=== PATIENT | male | born 1945 | race Asian ===

== ENCOUNTER 2020-07-22 09:52 | Observation (INO) ==
--- NOTE | 2020-07-22 10:04 | Emergency Department Note ---
Impression & Plan Constipation, Acute urinary retention, History of cerebrovascular accident ED Provider Note NAME: MARIXA QUINTERO AGE: 75 SEX: M : 1945 ARRIVES VIA: Ambulance INFORMANT: Patient, ED PROVIDER(S): Humberto Carrillo MD Chief Complaint: Difficulty with bowel movement HPI: Patient does present with constipation type symptoms which he states been ongoing for about 2 days. Patient states he has not had a bowel movement in a total of 5 days. However he has been symptomatic for the last 2 having difficulty with bowel movements. Patient feels as though there is something there but it is uncomfortable and he cannot get it out and refers to a bowel movement. The patient did have a recent stroke back in May at [facility]. The patient states that he does have some left-sided weakness compared to right-sided strength. The patient denies any headache or neck pain. The patient has had nausea but no vomiting. The patient denies any fevers or chills. The patient states he has not had Covid as he has been in his residence for the last 3 weeks. He is taken care of by his family. The patient has tried some stool softener at home but this has not improved his symptoms. Patient has prior history of abdominal surgery. Patient states that he is here for "cure for bowel movement." ROS: See HPI for pertinent positives and negatives. A total of 10 systems were reviewed and otherwise negative. Past medical history: See below Surgical history: See below Social history: See below Physical Exam: GENERAL: Wearing a mask. NAD, non-toxic. EYE EXAM: Normal conjunctiva. PERRL, no anisocoria and EOM's grossly intact w/o pain. NECK: Supple, no nuchal rigidity, no adenopathy, non-tender. No signs of meningismus. LUNGS: Clear to auscultation. Normal chest wall mechanics. HEART: NSR, no MRG. ABDOMEN: Abdomen soft, non-tender, lower abdominal fullness noted, normo-active bowel sounds, no masses, no rebound or guarding. BACK: No CVA TTP. SKIN: No rashes and no bruising. UPPER EXTREMITIES: Upper extremities are grossly normal. LOWER EXTREMITIES: Grossly normal, no edema. NEURO EXAM: A&O x3, cranial nerves II-XII grossly intact, normal speech, moves all 4 extremities on command w/o issue. Differential diagnoses: Constipation, stool impaction, bowel obstruction, abdominal mass, volvulus, perforation among others were considered. Course: Patient was seen and evaluated the bedside. Full history physical exam was performed. EKG: None Imaging Studies: See below Cardiac monitoring: An order was placed for continuous cardiac monitoring. The monitor shows a rate of 94 with sinus rhythm. MDM: Patient did present with concern for constipation type symptoms. I did try to obtain records from [facility] has the patient has not visited this hospital before. I did speak with the marketing secretary to try and obtain his records. Did receive past medical records from [facility] which showed that the patient does have a known history of hypertension has been a transfer through the [facility] system due to concern for bilateral cerebellar stroke. Patient reportedly had some dizziness unsteadiness and generalized weakness at that time. Patient did have some x-rays at the time of his admission which showed a fracture distal left clavicle. CT of his head showed acute subacute infarcts of the bilateral cerebellar hemispheres. No hydrocephalus at that time. She had negative CT cervical spine. Patient also did have a CT chest abdomen pelvis with contrast at that time which showed some atherosclerotic changes of the aorta. Somewhat enlarged prostate. Patient had numerous falls prior to the time of his admission. Patient had had symptoms proximally 5 to 7 days prior to being seen at the hospital. Patient's stroke scale only showed a 2 4 limb ataxia. Patient's A1c at the time of his admission was 11.7. The patient was discharged on Lantus and Metformin. The patient is on Flomax for urinary retention. Lisinopril for hypertension. Given the noted urinary retention the fact the patient has not been taking his medications I did have a bladder scan performed which showed that the patient was retaining urine. Jurado catheter was placed which output was approximately 2 L. [id number] BMP was ordered. I did speak with the machine adjuster leader case trim to discuss with an office of aging or additional help with be of benefit of the patient's given that he is now greater than a month out from his discharge and does not flower buncher or picker his medications. ED pharmacist did call and noted that the medications were there but have not been picked up. The patient's blood work fairly unremarkable white count of 12 with a normal hemoglobin. The patient's kidney function is essentially at baseline. I did convey this to the machine adjuster leader case trim. medical reimbursement manager still attempted to reach family but was unable to do so. Given that the patient has not been taking medications and there is concern about his wellbeing at home I did speak with the on-call hospitalist and the patient was admitted to the medicine service by Dr. Perea. 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: No Beliefs That Will Affect Care: None Current Living Situation: Spouse and Family Feels Safe at Home: Yes Assistive Devices: Glasses Allergies Allergies Allergy/AdvReac Type Severity Reaction Status Date / Time No Known Allergies Allergy Unverified 07/22/20 11:20 Home Meds Home Medications Medication Instructions Recorded Confirmed No Known Home Medications 07/22/20 07/22/20 Previous Rx's Medication Instructions Recorded aspirin 81 mg PO DAILY 30 Days #30 tab 07/23/20 atorvastatin 40 mg PO HS 30 Days #30 tab 07/23/20 docusate sodium 100 mg PO BID PRN 30 Days #60 cap 07/23/20 insulin glargine [Lantus Solostar 5 unit SC BID 30 Days #3 ml 07/23/20 U-100 Insulin] lisinopril 20 mg PO QAM 30 Days #30 tab 07/23/20 polyethylene glycol 3350 [Miralax] 17 g PO DAILY PRN 30 Days #30 ea 07/23/20 tamsulosin 0.4 mg PO HS 30 Days #30 cap 07/23/20 Results & Data (ED) Vital Signs Vital Signs - 24 hr 07/22/20 10:00 07/22/20 10:15 07/22/20 10:30 Temperature 36.8 C Temperature Source Oral Pulse Rate 94 H Pulse Rate [Finger] 92 H Pulse Rhythm [Finger] Pulse Strength [Finger] Respiratory Rate 16 18 Respiratory Effort / Characteristics Non-Labored Spontaneous Non-Labored Spontaneous Respiratory Depth Normal Normal Respiratory Pattern Regular Regular Blood Pressure 160/86 H Blood Pressure [Right Arm] 151/87 H Blood Pressure Mean 110 Blood Pressure Mean [Right Arm] 108 Blood Pressure Position [Right Arm] Pulse Oximetry 97 96 99 Oxygen Delivery Method Room Air Room Air Room Air Sepsis Recent Fever Within 48 Hours No Sepsis New/Unexplained Change in Mental Status No Sepsis Action Taken by Nursing No Action Required 07/22/20 12:30 07/22/20 15:30 07/22/20 17:09 Temperature Temperature Source Pulse Rate Pulse Rate [Finger] 101 H 99 H 100 H Pulse Rhythm [Finger] Regular Pulse Strength [Finger] Normal Respiratory Rate 16 18 18 Respiratory Effort / Characteristics Non-Labored Spontaneous Respiratory Depth Normal Respiratory Pattern Regular Blood Pressure Blood Pressure [Right Arm] 114/67 152/83 H 158/93 H Blood Pressure Mean Blood Pressure Mean [Right Arm] 82 106 114 Blood Pressure Position [Right Arm] Lying Pulse Oximetry 100 100 95 Oxygen Delivery Method Room Air Room Air Sepsis Recent Fever Within 48 Hours Sepsis New/Unexplained Change in Mental Status Sepsis Action Taken by [facility] Medications Current Medication List: was personally reviewed by me Laboratory Data Attestation: I reviewed the patient's lab results. Result diagrams: 07/23/20 05:29 07/23/20 05:29 Lab Results 07/22/20 07/22/20 07/22/20 Range/Units 13:30 15:26 15:26 WBC 12.13 H (4.8-10.8) K/uL RBC 4.24 L (4.7-6.1) M/uL Hgb 13.1 L (14.0-18.0) g/dL POC Hgb (14.0-18.0) g/dl Hct 37.8 L (42-52) % POC Hct (42-52) % MCV 89.2 (80-100) fL MCH 30.9 (25-34) pg MCHC 34.7 (32-36) g/dL RDW Std Deviation 41.8 (36.4-46.3) fL RDW Coeff of Fabian 12.9 (11.5-14.5) % Plt Count 204 (130-400) K/uL MPV 10.3 (7.4-10.4) fL Immature Gran % (Auto) 0.3 % Neut % (Auto) 82.9 % Lymph % (Auto) 7.9 % [place] % (Auto) 8.6 % Eos % (Auto) 0.2 % Baso % (Auto) 0.1 % Neut # (Auto) 10.06 H (1.4-6.5) K/uL Lymph # (Auto) 0.96 L (1.2-3.4) K/uL [place] # (Auto) 1.04 H (0.11-0.59) K/uL Eos # (Auto) 0.02 (0-0.5) K/uL Baso # (Auto) 0.01 (0-0.2) K/uL Immature Gran # (Auto) 0.04 H (0.00-0.02) K/uL POC Sodium (135-144) mmol/L Sodium 135 L (136-145) mmol/L POC Potassium (3.3-5.0) mmol/L Potassium 4.1 (3.5-5.1) mmol/L POC Chloride (101-112) mmol/L Chloride 99 (98-107) mmol/L Carbon Dioxide 30 (21-32) mmol/L POC Total CO2 (24-31) mmol/L Anion Gap 7.0 (3-11) POC Anion Gap (16-25) mmol/L POC BUN (7-18) mg/dl BUN 38 H (7-18) mg/dl Creatinine 1.40 (0.6-1.4) mg/dl POC Creatinine (0.6-1.3) mg/dl Est Cr Clr Drug Dosing 31.6 ml/min Est GFR ( Amer) 56.2 Est GFR (Non-Af Amer) 48.5 BUN/Creatinine Ratio 27.4 H (10-20) Glucose 182 H (70-99) mg/dl POC Glucose (other) (70-99) mg/dl Calcium 9.2 (8.5-10.1) mg/dl POC Ioniz Calcium [place] (1.12-1.32) mmol/l Phosphorus (2.5-4.9) mg/dl Magnesium (1.8-2.4) mg/dl Urine Color Dark Yellow Urine Appearance Clear (Clear) Urine pH 5.0 (4.5-7.5) Ur Specific [place] 1.024 (1.000-1.030) Urine Protein 1+ H (Negative) Urine Glucose (UA) 1+ H (Negative) Urine Ketones Trace H (Negative) Urine Blood Trace H (Negative) Urine Nitrite Negative (Negative) Urine Bilirubin Negative (Negative) Urine Urobilinogen Negative (Negative) Ur Leukocyte Esterase Negative (Negative) Urine WBC (Auto) 1-5 (0-5) /hpf Urine RBC (Auto) 5-10 H (0-4) /hpf U Hyaline Cast (Auto) 1-5 (0-5) /lpf U Epithel Cells (Auto) 10-20 H (0-5) /lpf Urine Bacteria (Auto) Negative (Negative) 07/22/20 07/22/20 Range/Units 15:26 15:30 WBC (4.8-10.8) K/uL RBC (4.7-6.1) M/uL Hgb (14.0-18.0) g/dL POC Hgb 12.9 L (14.0-18.0) g/dl Hct (42-52) % POC Hct 38 L (42-52) % MCV (80-100) fL MCH (25-34) pg MCHC (32-36) g/dL RDW Std Deviation (36.4-46.3) fL RDW Coeff of Fabian (11.5-14.5) % Plt Count (130-400) K/uL MPV (7.4-10.4) fL Immature Gran % (Auto) % Neut % (Auto) % Lymph % (Auto) % [place] % (Auto) % Eos % (Auto) % Baso % (Auto) % Neut # (Auto) (1.4-6.5) K/uL Lymph # (Auto) (1.2-3.4) K/uL [place] # (Auto) (0.11-0.59) K/uL Eos # (Auto) (0-0.5) K/uL Baso # (Auto) (0-0.2) K/uL Immature Gran # (Auto) (0.00-0.02) K/uL POC Sodium 135 (135-144) mmol/L Sodium (136-145) mmol/L POC Potassium 4.1 (3.3-5.0) mmol/L Potassium (3.5-5.1) mmol/L POC Chloride 95 L (101-112) mmol/L Chloride (98-107) mmol/L Carbon Dioxide (21-32) mmol/L POC Total CO2 32 H (24-31) mmol/L Anion Gap (3-11) POC Anion Gap 13.0 L (16-25) mmol/L POC BUN 37 H (7-18) mg/dl BUN (7-18) mg/dl Creatinine (0.6-1.4) mg/dl POC Creatinine 1.5 H (0.6-1.3) mg/dl Est Cr Clr Drug Dosing ml/min Est GFR ( Amer) Est GFR (Non-Af Amer) BUN/Creatinine Ratio (10-20) Glucose (70-99) mg/dl POC Glucose (other) 184 H (70-99) mg/dl Calcium (8.5-10.1) mg/dl POC Ioniz Calcium [place] 1.07 L (1.12-1.32) mmol/l Phosphorus 3.6 (2.5-4.9) mg/dl Magnesium 3.1 H (1.8-2.4) mg/dl Urine Color Urine Appearance (Clear) Urine pH (4.5-7.5) Ur Specific [place] (1.000-1.030) Urine Protein (Negative) Urine Glucose (UA) (Negative) Urine Ketones (Negative) Urine Blood (Negative) Urine Nitrite (Negative) Urine Bilirubin (Negative) Urine Urobilinogen (Negative) Ur Leukocyte Esterase (Negative) Urine WBC (Auto) (0-5) /hpf Urine RBC (Auto) (0-4) /hpf U Hyaline Cast (Auto) (0-5) /lpf U Epithel Cells (Auto) (0-5) /lpf Urine Bacteria (Auto) (Negative) Administered Medications Aspirin (Aspirin 81 Mg Ectab) 81 mg PO DAILY [facility] Stop: 08/21/20 21:25 Last Admin: 07/23/20 08:59 Dose: 81 mg Documented by: [id number] Admin: 07/22/20 22:27 Dose: 81 mg Documented by: [id number] Atorvastatin Calcium (Atorvastatin 40 Mg Tab) [facility]: 08/22/20 08:59 Last Admin: 07/23/20 08:59 Dose: 40 mg Documented by: [id number] Sodium Chloride (Nss 1000ml) 1,000 mls @ 100 mls/hr IV .Q10H NA Stop: 07/23/20 17:25 Last Admin: 07/23/20 06:17 Dose: 100 mls/hr Documented by: [id number] Infusion: 07/23/20 06:17 Dose: 100 mls/hr Documented by: [id number] Admin: 07/22/20 21:32 Dose: 100 mls/hr Documented by: [id number] Insulin Aspart (Insulin Aspart 100 Units/Ml 3 Ml Pen) 0 units SC ACHS NA Stop: 08/21/20 21:25 Last Admin: 07/23/20 08:56 Dose: 3 units Documented by: [id number] Cosigned by: [id number] Admin: 07/22/20 22:25 Dose: 1 units Documented by: [id number] Cosigned by: [id number] Insulin Glargine (Insulin Glargine Solostar 100 Units/Ml 3 Ml Pen) 5 units SC BID NA Stop: 08/21/20 21:25 Last Admin: 07/23/20 08:59 Dose: 5 units Documented by: [id number] Cosigned by: [id number] Admin: 07/22/20 22:26 Dose: 5 units Documented by: [id number] Cosigned by: [id number] Lisinopril (Lisinopril 20 Mg Tab) 20 mg PO QAM [facility] Stop: 08/22/20 08:59 Last Admin: 07/23/20 08:59 Dose: 20 mg Documented by: [id number] Tamsulosin HCl (Tamsulosin Hcl 0.4 Mg Cap) 0.4 mg PO HS [facility] Stop: 08/21/20 21:25 Last Admin: 07/22/20 22:26 Dose: 0.4 mg Documented by: [id number] Discontinued Medications Sodium Chloride (Nss 1000ml) 500 mls @ 999 mls/hr IV .Q31M ONE Stop: 07/22/20 16:47 Last Infusion: 07/22/20 17:32 Dose: 0 mls/hr Documented by: [id number] Admin: 07/22/20 16:44 Dose: 999 mls/hr Documented by: [id number] Magnesium Citrate (Magnesium Citrate 296 Ml/Btl) 296 ml PO NOW STA Stop: 07/22/20 10:57 Last Admin: 07/22/20 12:12 Dose: 296 ml Documented by: [id number] Senna/Docusate Sodium (Docusate Sodium/Senna 50/8.6mg Tab) 1 tab PO NOW STA Stop: 07/22/20 10:57 Last Admin: 07/22/20 12:12 Dose: 1 tab Documented by: [id number] Sodium Biphosphate/Sodium Phosphate (Sod Phosphate/Sod Biphosphate Enema 132 Ml Btl) Confirm Administered Dose 132 ml [place] .STK-MED ONE Stop: 07/22/20 11:57 Last Admin: 07/22/20 12:12 Dose: Not Given Documented by: [id number] Sodium Biphosphate/Sodium Phosphate (Sod Phosphate/Sod Biphosphate Enema 132 Ml Btl) 132 ml [place] NOW STA Stop: 07/22/20 12:06 Last Admin: 07/22/20 13:37 Dose: 132 ml Documented by: [id number] Imaging Data Radiologist's Impression: Chest/Abdomen X-ray 07/22/20 10:15 XR abdomen 2V w PA chest HISTORY: 75 years-old Male constipation chest and abdominal pain with consti pation COMPARISON: None TECHNIQUE: PA view of the chest with supine and left lateral decubitus films of the abdomen FINDINGS: Cardiomediastinal and hilar silhouettes are within normal limits. Calcified plaque of the thoracic aorta. 11 mm nodular density of the right lung base. No pneumothorax, pleural effusion, airspace consolidation or overt pulmonary edema. Bones of the chest appear grossly intact. Right shoulder rotator cuff calcific tendinosis. No pneumatosis or pneumoperitoneum. Bowel gas pattern is nonobstructive. Mild fecal retention. No urolith identified. Lumbar levoscoliosis with multilevel degenerative changes of the spine. IMPRESSION: 1. No acute processes of the chest. 2. 11 mm nodular density of the right lung base may represent a nipple shadow. 3. Nonobstructive bowel gas pattern. 4. Mild fecal retention. ACT 112: Negative or not required by law. The above report was generated using voice recognition software. It may contain grammatical, syntax or spelling errors. Electronically signed by: Kalin Connelly M.D. 07/22/2020 10:59 AM Discharge Plan Visit Data Chief Complaint: Constipation ED Provider: Humberto Carrillo Discharge Problem: Constipation, Acute urinary retention, History of cerebrovascular accident Patient Disposition: Admitted As Inpatient Discharge Instructions Interventions: ED Discharge Assessment Last Done: 07/22/20 20:47 Discharge Problem: Constipation Qualifiers: Constipation type: unspecified constipation type Qualified Code(s): K59.00 - Constipation, unspecified
[2020-07-22] MEDS ORDERED: MAGNESIUM CITRATE 296 ML/BTL PO STA (10:56)
[2020-07-22] MEDS ORDERED: DOCUSATE SODIUM/SENNA 50/8.6MG TAB PO STA (10:56)
--- NOTE | 2020-07-22 11:00 | XRay Report ---
XR abdomen 2V w PA chest HISTORY: 75 years-old Male constipation chest and abdominal pain with constipation COMPARISON: None TECHNIQUE: PA view of the chest with supine and left lateral decubitus films of the abdomen FINDINGS: Cardiomediastinal and hilar silhouettes are within normal limits. Calcified plaque of the thoracic ao rta. 11 mm nodular density of the right lung base. No pneumothorax, pleural effusion, airspace consol idation or overt pulmonary edema. Bones of the chest appear grossly intact. Right shoulder rotator cu ff calcific tendinosis. No pneumatosis or pneumoperitoneum. Bowel gas pattern is nonobstructive. Mild fecal retention. No uro lith identified. Lumbar levoscoliosis with multilevel degenerative changes of the spine. IMPRESSION: 1. No acute processes of the chest. 2. 11 mm nodular density of the right lung base may represent a nipple shadow. 3. Nonobstructive bowel gas pattern. 4. Mild fecal retention. ACT 112: Negative or not required by law. The above report was generated using voice recognition software. It may contain grammatical, syntax o r spelling errors. Electronically signed by: Kalin Connelly M.D. 07/22/2020 10:59 AM
[2020-07-22] MEDS ORDERED: SOD PHOSPHATE/SOD BIPHOSPHATE ENEMA 132 ML BTL PR ONE (11:56)
[2020-07-22] MEDS ORDERED: SOD PHOSPHATE/SOD BIPHOSPHATE ENEMA 132 ML BTL PR STA (12:05)
[2020-07-22 13:43] LABS: Appearance Urine Clear (Clear); Bacteria Urine Automated Negative (Negative); Bilirubin Urine Negative (Negative); Blood Urine Trace (Negative); Color Urine Dark Yellow; Glucose Urine UA 1+ (Negative); Ketones Urine Trace (Negative); Leukocyte Esterase Urine Negative (Negative); Nitrite Urine Negative (Negative); Protein Urine 1+ (Negative); Specific Gravity Urine 1.024 (1.000-1.030); Urobilinogen Urine Negative (Negative)
[2020-07-22 15:35] LABS: Basophils # (auto) 0.01 K/uL (0-0.2); Basophils % (auto) 0.1 %; Eosinophils # (auto) 0.02 K/uL (0-0.5); Eosinophils % (auto) 0.2 %; Hematocrit (blood only) 37.8 % (42-52); Hemoglobin 13.1 g/dL (14.0-18.0); Immature Granulocytes # (auto) 0.04 K/uL (0.00-0.02); Immature Granulocytes % (auto) 0.3 %; Lymphocytes # (auto) 0.96 K/uL (1.2-3.4); Lymphocytes % (auto) 7.9 %; Mean Corpuscular Hemoglobin 30.9 pg (25-34); Mean Corpuscular Hgb Conc 34.7 g/dL (32-36); Mean Corpuscular Volume 89.2 fL (80-100); Mean Platelet Volume 10.3 fL (7.4-10.4); Monocytes # (auto) 1.04 K/uL (0.11-0.59); Monocytes % (auto) 8.6 %; Neutrophils # (auto) 10.06 K/uL (1.4-6.5); Neutrophils % (auto) 82.9 %; Platelet Count 204 K/uL (130-400); RDW Coefficient of Variation 12.9 % (11.5-14.5); RDW Standard Deviation 41.8 fL (36.4-46.3); Red Blood Count 4.24 M/uL (4.7-6.1); White Blood Count 12.13 K/uL (4.8-10.8)
[2020-07-22 15:49] LABS: BUN Creatinine Ratio 27.4 (10-20); Calcium 9.2 mg/dl (8.5-10.1); Creatinine Clr Calc Pharmacy 31.6 ml/min; Est GFR (African American) 56.2; Est GFR (Non-African American) 48.5; Potassium 4.1 mmol/L (3.5-5.1)
[2020-07-22] MEDS ORDERED: SODIUM CHLORIDE 0.9% 1000ML 500 ML IV ONE (16:17)
[2020-07-22 16:22] LABS: iSTAT Creatinine 1.5 mg/dl (0.6-1.3); iSTAT Hemoglobin 12.9 g/dl (14.0-18.0); iSTAT Ionized Calcium 1.07 mmol/l (1.12-1.32); iSTAT Potassium 4.1 mmol/L (3.3-5.0)
--- NOTE | 2020-07-22 18:49 | History & Physical Report ---
Date of Service July 22, 2020 Assessment & Plan (1) Constipation: Largely resolved after receiving several agents in the ER. -Monitor output -Colace, Miralax as needed -Patient should continue bowel regimen on discharge Present on Admission?: Yes (2) Acute urinary retention: Jurado in place with 2ooo mL output. Cr is within normal range. Patient endorses decreased urinary output. He has prostatic enlargement noted on imaging. Was discharged on Flomax from [facility], however, has not been taking this -Continue Jurado for now with routine care q shift -Flomax 0.4mg daily -Monitor UOP and renal function Present on Admission?: Yes (3) Hypertension: Blood pressure presently elevated at 158/93 -Will resume Lisinopril 20mg po daily -Continue to monitor Present on Admission?: Yes (4) Diabetes type 2, uncontrolled: Blood sugar presently 182. Patient was recently discharged on Lantus 12u daily from [facility]. However, he has not been taking this medication -Check HgbA1C -Lantus 5u BID -ISS -Patient may benefit from diabetes education and nutrition counseling in the future Present on Admission?: Yes (5) CVA (cerebral vascular accident): Patient with recent cerebellar stroke for which he was admitted to [facility] -Continue ASA 81mg po daily -Continue Lipitor 40mg po daily -Management of blood pressure and diabetes Patient seems to be somewhat hesitant to take his home medications, stating that "he doesn't need them" anymore. I offered some brief counseling re: management of chronic disease such as DM and HTN as well as importance of ASA and Statin for secondary prevention for CVA. Patient currently does not follow with a PCP. He should establish care and commit to routine followup. F/E/N - NSS at 100mL/hr x 2 liters, CC/AHA diet as tolerated Ppx - SCDs Code - Full Dispo - Observation to medical History of Present Illness Chief Complaint: Constipation Primary Care Provider: NO PCP Silas Box is a 75yo [place] male with history of HTN, DM and urinary retention. Patient does not routinely seek medical care. He had a recent cerebellar CVA for which he was hospitalized at [facility] from 05/29 - 06/08. Patient returned home and is currently being cared for by family. He has not taken any medications since returning home. He reports his blood pressure is typically 140-170 and his blood sugars are often >300. He presents today with complaint of constipation. Last BM reported to be 5 days ago. He has had some abdominal discomfort x 2 days. He also reports having infrequent urination, passing only small amounts. No additional complaints at this time. Patient afebrile, HD stable in the ER. He was given several agents to induce bowel movement which was successful. Given history of urinary retention patient had a bladder scan then Jurado placement with 2000 mL passed. ER Course: Magnesium citrate Senna/Docusate Sodium Bisphosphate enema NSS x 500mL REVIEW OF RECORDS FROM [facility] HOSPITALIZATION: 05/29/20 - 06/08/20 Admitted with bilateral cerebellar strokes with cerebral edema. Found with [id number] left clavicular fracture as well and urinary retention Stroke thought to be thrombotic in nature given heavy atherosclerotic burden MRI Brain - cerebellar stroke CTA - extensive atherosclerotic disease of carotid bifurcation and 20-49% stenosis of proximal left ICA Echo - EF of 60-69% with normal wall motion Cr=1.44 Patient was discharged on the following medications ASA 81mg Lipitor 40mg Lisinopril 20 mg Lantus 12u daily Metformin 500mg BID Flomax Docusate/Senna, Miralax and Bisacodyl Allergies Allergy/AdvReac Type Severity Reaction Status Date / Time No Known Allergies Allergy Unverified 07/22/20 11:20 Home Medications Medication Instructions Recorded Confirmed Type No Known Home Medications 07/22/20 07/22/20 History Past Med/Surg History Medical History (Updated 07/22/20 @ 19:04 by Mariaelena Perea DO) CVA (cerebral vascular accident) Diabetes type 2, uncontrolled Hypertension Surgical History No pertinent past surgical history Family History (Updated 07/22/20 @ 18:57 by Mariaelena Perea DO) Other No significant family history Social History (Updated 07/22/20 @ 18:57 by Mariaelena Perea DO) Smoking Status: Never smoker Hx Alcohol Use: No Hx Substance Use: No Review of Systems Review of Systems: All systems reviewed & are unremarkable except as noted in HPI & below Physical Exam Physical Exam: General: frail appearing patient resting comfortably, NAD, non-toxic in appearance, AA&O x 4, hard of hearing Skin: warm, dry, intact, no rashes or lesions HEENT: NC/AT, PERRL, EOMI, anicteric sclera, conjunctiva without injection, external ear normal to inspection and nontender, nares patent, moist mucus membranes, dentition intact, no oropharyngeal lesions, neck supple, trachea midline, no LAD, no thyromegaly, no JVD Heart: +S1/S2, regular, no m/r/g Lungs: equal air entry bilaterally, no rales/rhonchi/wheezes Abd: +BS, soft, ND, mildly tender with deep palpation without rebound/guarding/peritoneal signs, no masses/organomegaly/ascites Ext: warm, 2+ pulses in UE/LE bilaterally, no clubbing/cyanosis or edema Neuro: hard of hearing, patient requires assistance with positioning Results & Data Results & Data ([facility]) Vital Signs (Past 12 Hours) Vital Signs Temp Pulse Pulse Resp BP BP Pulse Ox 07/22/20 17:09 100 H 18 158/93 H 95 07/22/20 15:30 99 H 18 152/83 H 100 07/22/20 12:30 101 H 16 114/67 100 07/22/20 10:30 92 H 18 151/87 H 99 07/22/20 10:15 96 07/22/20 10:00 36.8 C 94 H 16 160/86 H 97 Laboratory Results Lab Results 07/22/20 07/22/20 07/22/20 Range/Units 13:30 15:26 15:26 WBC 12.13 H (4.8-10.8) K/uL RBC 4.24 L (4.7-6.1) M/uL Hgb 13.1 L (14.0-18.0) g/dL POC Hgb (14.0-18.0) g/dl Hct 37.8 L (42-52) % POC Hct (42-52) % MCV 89.2 (80-100) fL MCH 30.9 (25-34) pg MCHC 34.7 (32-36) g/dL RDW Std Deviation 41.8 (36.4-46.3) fL RDW Coeff of Fabian 12.9 (11.5-14.5) % Plt Count 204 (130-400) K/uL MPV 10.3 (7.4-10.4) fL Immature Gran % (Auto) 0.3 % Neut % (Auto) 82.9 % Lymph % (Auto) 7.9 % [place] % (Auto) 8.6 % Eos % (Auto) 0.2 % Baso % (Auto) 0.1 % Neut # (Auto) 10.06 H (1.4-6.5) K/uL Lymph # (Auto) 0.96 L (1.2-3.4) K/uL [place] # (Auto) 1.04 H (0.11-0.59) K/uL Eos # (Auto) 0.02 (0-0.5) K/uL Baso # (Auto) 0.01 (0-0.2) K/uL Immature Gran # (Auto) 0.04 H (0.00-0.02) K/uL POC Sodium (135-144) mmol/L Sodium 135 L (136-145) mmol/L POC Potassium (3.3-5.0) mmol/L Potassium 4.1 (3.5-5.1) mmol/L POC Chloride (101-112) mmol/L Chloride 99 (98-107) mmol/L Carbon Dioxide 30 (21-32) mmol/L POC Total CO2 (24-31) mmol/L Anion Gap 7.0 (3-11) POC Anion Gap (16-25) mmol/L POC BUN (7-18) mg/dl BUN 38 H (7-18) mg/dl Creatinine 1.40 (0.6-1.4) mg/dl POC Creatinine (0.6-1.3) mg/dl Est Cr Clr Drug Dosing 31.6 ml/min Est GFR ( Amer) 56.2 Est GFR (Non-Af Amer) 48.5 BUN/Creatinine Ratio 27.4 H (10-20) Glucose 182 H (70-99) mg/dl POC Glucose (other) (70-99) mg/dl Calcium 9.2 (8.5-10.1) mg/dl POC Ioniz Calcium Cuauhtemoc (1.12-1.32) mmol/l Urine Color Dark Yellow Urine Appearance Clear (Clear) Urine pH 5.0 (4.5-7.5) Ur Specific [place] 1.024 (1.000-1.030) Urine Protein 1+ H (Negative) Urine Glucose (UA) 1+ H (Negative) Urine Ketones Trace H (Negative) Urine Blood Trace H (Negative) Urine Nitrite Negative (Negative) Urine Bilirubin Negative (Negative) Urine Urobilinogen Negative (Negative) Ur Leukocyte Esterase Negative (Negative) Urine WBC (Auto) 1-5 (0-5) /hpf Urine RBC (Auto) 5-10 H (0-4) /hpf U Hyaline Cast (Auto) 1-5 (0-5) /lpf U Epithel Cells (Auto) 10-20 H (0-5) /lpf Urine Bacteria (Auto) Negative (Negative) 07/22/20 Range/Units 15:30 WBC (4.8-10.8) K/uL RBC (4.7-6.1) M/uL Hgb (14.0-18.0) g/dL POC Hgb 12.9 L (14.0-18.0) g/dl Hct (42-52) % POC Hct 38 L (42-52) % MCV (80-100) fL MCH (25-34) pg MCHC (32-36) g/dL RDW Std Deviation (36.4-46.3) fL RDW Coeff of Fabian (11.5-14.5) % Plt Count (130-400) K/uL MPV (7.4-10.4) fL Immature Gran % (Auto) % Neut % (Auto) % Lymph % (Auto) % St. [place]air % (Auto) % Eos % (Auto) % Baso % (Auto) % Neut # (Auto) (1.4-6.5) K/uL Lymph # (Auto) (1.2-3.4) K/uL St[place] # (Auto) (0.11-0.59) K/uL Eos # (Auto) (0-0.5) K/uL Baso # (Auto) (0-0.2) K/uL Immature Gran # (Auto) (0.00-0.02) K/uL POC Sodium 135 (135-144) mmol/L Sodium (136-145) mmol/L POC Potassium 4.1 (3.3-5.0) mmol/L Potassium (3.5-5.1) mmol/L POC Chloride 95 L (101-112) mmol/L Chloride (98-107) mmol/L Carbon Dioxide (21-32) mmol/L POC Total CO2 32 H (24-31) mmol/L Anion Gap (3-11) POC Anion Gap 13.0 L (16-25) mmol/L POC BUN 37 H (7-18) mg/dl BUN (7-18) mg/dl Creatinine (0.6-1.4) mg/dl POC Creatinine 1.5 H (0.6-1.3) mg/dl Est Cr Clr Drug Dosing ml/min Est GFR ( Amer) Est GFR (Non-Af Amer) BUN/Creatinine Ratio (10-20) Glucose (70-99) mg/dl POC Glucose (other) 184 H (70-99) mg/dl Calcium (8.5-10.1) mg/dl POC Ioniz Calcium Cuauhtemoc 1.07 L (1.12-1.32) mmol/l Urine Color Urine Appearance (Clear) Urine pH (4.5-7.5) Ur Specific [place] (1.000-1.030) Urine Protein (Negative) Urine Glucose (UA) (Negative) Urine Ketones (Negative) Urine Blood (Negative) Urine Nitrite (Negative) Urine Bilirubin (Negative) Urine Urobilinogen (Negative) Ur Leukocyte Esterase (Negative) Urine WBC (Auto) (0-5) /hpf Urine RBC (Auto) (0-4) /hpf U Hyaline Cast (Auto) (0-5) /lpf U Epithel Cells (Auto) (0-5) /lpf Urine Bacteria (Auto) (Negative) Diagnostic Findings XR abdomen 2V w PA chest HISTORY: 75 years-old Male constipation chest and abdominal pain with constipation COMPARISON: None TECHNIQUE: PA view of the chest with supine and left lateral decubitus films of the abdomen FINDINGS: Cardiomediastinal and hilar silhouettes are within normal limits. Calcified plaque of the thoracic aorta. 11 mm nodular density of the right lung base. No pneumothorax, pleural effusion, airspace consolidation or overt pulmonary edema. Bones of the chest appear grossly intact. Right shoulder rotator cuff calcific tendinosis. No pneumatosis or pneumoperitoneum. Bowel gas pattern is nonobstructive. Mild fecal retention. No urolith identified. Lumbar levoscoliosis with multilevel degenerative changes of the spine. IMPRESSION: 1. No acute processes of the chest. 2. 11 mm nodular density of the right lung base may represent a nipple shadow. 3. Nonobstructive bowel gas pattern. 4. Mild fecal retention. ACT 112: Negative or not required by law. The above report was generated using voice recognition software. It may contain grammatical, syntax or spelling errors. Electronically signed by: Kalin Connelly M.D. 07/22/2020 10:59 AM Dictated: 07/22/20 1055Transcribed: 07/22/20 1055 PG Care Time/CCT Total # of Minutes Spent Total Time Spent with Patient: Total time spent is greater than 50% in coordination of care (as documented) at patient's floor/unit and/or counseling patient: Coding Level of Care Code 95283 OBS Care - Level 3 Diagnoses Constipation K59.00 Constipation type: unspecified constipation type Acute urinary retention R33.8 Hypertension I10 Hypertension type: essential hypertension Diabetes type 2, uncontrolled E11.65 Glycemic state: with hyperglycemia CVA (cerebral vascular accident) I63.9 CVA mechanism: unspecified (1) Hypertension Hypertension type: essential hypertension Qualified Code(s): I10 - Essential (primary) hypertension (2) Diabetes type 2, uncontrolled Glycemic state: with hyperglycemia Qualified Code(s): E11.65 - Type 2 diabetes mellitus with hyperglycemia (3) Constipation Constipation type: unspecified constipation type Qualified Code(s): K59.00 - Constipation, unspecified (4) CVA (cerebral vascular accident) CVA mechanism: unspecified Qualified Code(s): I63.9 - Cerebral infarction, unspecified
[2020-07-22 19:57] LABS: Influenza A virus by PCR Negative (Neg); Influenza B virus by PCR Negative (Neg); RSV by PCR Negative (Neg); SARS CoV2 RNA(COVID-19) InHosp NEGATIVE (Negative)
[2020-07-22] MEDS ORDERED: GLUCAGON FOR INJ 1 MG VIAL SQ PRN (21:26)
[2020-07-22] MEDS ORDERED: DOCUSATE SODIUM 100 MG CAP PO PRN (21:26)
[2020-07-22] MEDS ORDERED: DEXTROSE 50% 50 ML SYRINGE IV PRN (21:26)
[2020-07-22] MEDS ORDERED: CARBOHYDRATES FOR HYPOGLYCEMIA PO PRN (21:26)
[2020-07-22] MEDS ORDERED: ACETAMINOPHEN 325 MG TAB PO PRN (21:26)
[2020-07-22] MEDS ORDERED: GLUCOSE 40% GEL 15 GM TUBE PO PRN (21:26)
[2020-07-22] MEDS ORDERED: POLYETHYLENE (MIRALAX) 17 GM PACK PO PRN (21:26)
[2020-07-22] MEDS ORDERED: GLUCOSE 10 TABS/TUBE PO PRN (21:26)
[2020-07-22] MEDS ORDERED: TAMSULOSIN HCL 0.4 MG CAP PO SCH (21:26)
[2020-07-22] MEDS: SODIUM CHLORIDE 0.9% 1000ML 1,000 ML IV SCH (21:32)
[2020-07-22 21:53] LABS: Magnesium 3.1 mg/dl (1.8-2.4); Phosphorus 3.6 mg/dl (2.5-4.9)
[2020-07-22] MEDS: INSULIN ASPART 100 UNITS/ML 3 ML PEN SC SCH (22:25)
[2020-07-22] MEDS: INSULIN GLARGINE SOLOSTAR 100 UNITS/ML 3 ML PEN SC SCH (22:26)
[2020-07-22] MEDS: ASPIRIN 81 MG ECTAB PO SCH (22:27)
[2020-07-23 06:00] LABS: Basophils # (auto) 0.02 K/uL (0-0.2); Basophils % (auto) 0.2 %; Eosinophils # (auto) 0.08 K/uL (0-0.5); Eosinophils % (auto) 0.8 %; Hematocrit (blood only) 33.5 % (42-52); Hemoglobin 11.4 g/dL (14.0-18.0); Immature Granulocytes # (auto) 0.02 K/uL (0.00-0.02); Immature Granulocytes % (auto) 0.2 %; Lymphocytes # (auto) 1.23 K/uL (1.2-3.4); Lymphocytes % (auto) 12.7 %; Mean Corpuscular Hemoglobin 30.7 pg (25-34); Mean Corpuscular Volume 90.3 fL (80-100); Mean Platelet Volume 10.5 fL (7.4-10.4); Monocytes # (auto) 0.92 K/uL (0.11-0.59); Monocytes % (auto) 9.5 %; Neutrophils # (auto) 7.39 K/uL (1.4-6.5); Neutrophils % (auto) 76.6 %; Platelet Count 198 K/uL (130-400); RDW Coefficient of Variation 12.9 % (11.5-14.5); RDW Standard Deviation 42.7 fL (36.4-46.3); Red Blood Count 3.71 M/uL (4.7-6.1); White Blood Count 9.66 K/uL (4.8-10.8)
[2020-07-23] MEDS: SODIUM CHLORIDE 0.9% 1000ML 1,000 ML IV SCH (06:17)
[2020-07-23 06:37] LABS: BUN Creatinine Ratio 26.4 (10-20); Calcium 8.4 mg/dl (8.5-10.1); Creatinine Clr Calc Pharmacy 43.6 ml/min; Est GFR (African American) 90.9; Est GFR (Non-African American) 78.4; Potassium 3.7 mmol/L (3.5-5.1)
[2020-07-23] MEDS: INSULIN ASPART 100 UNITS/ML 3 ML PEN SC SCH ×2 (08:56→12:51)
[2020-07-23] MEDS: INSULIN GLARGINE SOLOSTAR 100 UNITS/ML 3 ML PEN SC SCH (08:59)
[2020-07-23] MEDS: ASPIRIN 81 MG ECTAB PO SCH (08:59)
[2020-07-23] MEDS ORDERED: lisinopril 20 MG TAB PO SCH (09:00)
[2020-07-23] MEDS ORDERED: ATORVASTATIN 40 MG TAB PO SCH (09:00)
--- NOTE | 2020-07-23 09:05 | Discharge Summary ---
Date of Service July 23, 2020 Admission HPI Per Admitting Provider Silas Box is a 75yo [place] male with history of HTN, DM and urinary retention. Patient does not routinely seek medical care. He had a recent cerebellar CVA for which he was hospitalized at [facility] from 05/29 - 06/08. Patient returned home and is currently being cared for by family. He has not taken any medications since returning home. He reports his blood pressure is typically 140-170 and his blood sugars are often >300. He presents today with complaint of constipation. Last BM reported to be 5 days ago. He has had some abdominal discomfort x 2 days. He also reports having infrequent urination, passing only small amounts. No additional complaints at this time. Patient afebrile, HD stable in the ER. He was given several agents to induce bowel movement which was successful. Given history of urinary retention patient had a bladder scan then Anderson placement with 2000 mL passed. ER Course: Magnesium citrate Senna/Docusate Sodium Bisphosphate enema NSS x 500mL REVIEW OF RECORDS FROM [facility] HOSPITALIZATION: 05/29/20 - 06/08/20 Admitted with bilateral cerebellar strokes with cerebral edema. Found with [id number] left clavicular fracture as well and urinary retention Stroke thought to be thrombotic in nature given heavy atherosclerotic burden MRI Brain - cerebellar stroke CTA - extensive atherosclerotic disease of carotid bifurcation and 20-49% stenosis of proximal left ICA Echo - EF of 60-69% with normal wall motion Cr=1.44 Patient was discharged on the following medications ASA 81mg Lipitor 40mg Lisinopril 20 mg Lantus 12u daily Metformin 500mg BID Flomax Docusate/Senna, Miralax and Bisacodyl Admission Exam Per Admitting Provider Physical Exam: General: frail appearing patient resting comfortably, NAD, non- toxic in appearance, AA&O x 4, hard of hearing Skin: warm, dry, intact, no rashes or lesions HEENT: NC/AT, PERRL, EOMI, anicteric sclera, conjunctiva without injection, external ear normal to inspection and nontender, nares patent, moist mucus membranes, dentition intact, no oropharyngeal lesions, neck supple, trachea midline, no LAD, no thyromegaly, no JVD Heart: +S1/S2, regular, no m/r/g Lungs: equal air entry bilaterally, no rales/rhonchi/wheezes Abd: +BS, soft, ND, mildly tender with deep palpation without rebound/guarding/peritoneal signs, no masses/organomegaly/ascites Ext: warm, 2+ pulses in UE/LE bilaterally, no clubbing/cyanosis or edema Neuro: hard of hearing, patient requires assistance with positioning Principal Diagnosis Constipation, urinary retention Discharge Exam Temp Pulse Resp BP Pulse Ox 36.4 C L 99 H 16 160/89 H 99 07/23/20 06:56 07/23/20 06:56 07/23/20 06:56 07/23/20 06:56 07/23/20 06:56 Patient is hypertensive at 160/89, but is asymptomatic. Anderson catheter draining clear, yellow urine. Constitutional + thin; no acute distress ENMT Ears: no hearing impairment Neck normal visual inspection Respiratory normal respiratory effort, lungs clear to auscultation Cardiovascular RRR, no murmur, no edema Gastrointestinal (Abdomen) Inspection/Auscultation: normal bowel sounds Percussion/Palpation: abdomen soft; abdomen nontender Psychiatric A+Ox3, euthymic affect Discharge Data Allergies Allergy/AdvReac Type Severity Reaction Status Date / Time No Known Allergies Allergy Unverified 07/22/20 11:20 Consultations 07/22/20 17:53 ED Decision to Admit Stat Hospital Course (1) Constipation: Largely resolved after receiving several agents in the ER. No BM this morning, but patient denies pain. He does c/o some nausea. -Monitor output -Colace, Miralax as needed -Continue bowel regimen on discharge (2) Acute urinary retention: Anderson in place with 2000 mL output. Cr improved to 0.94 today. Patient endorsed decreased urinary output on admission. He has prostatic enlargement noted on imaging. Was discharged on Flomax from [facility], however, has not been taking this -Discharge home with anderson catheter. F/u with urology in 7-10 days for trail of void. -Continue Flomax 0.4mg qhs on discharge. (3) Hypertension: Blood pressure presently elevated at 160/89. Currently asymptomatic. He was not taking the Lisinopril as ordered prior to admission. -Continue Lisinopril 20mg po daily upon discharge. Will need to establish care with a PCP upon discharge for close follow-up. (4) Diabetes type 2, uncontrolled: Blood sugar presently 119 this AM. Patient was not taking Lantus at home. -HgbA1C pending this AM. Will need to establish close f/u with a PCP upon discharge. -Lantus 5u BID -ISS -Patient may benefit from diabetes education and nutrition counseling in the future (5) CVA (cerebral vascular accident): Patient with recent cerebellar stroke for which he was admitted to [facility] -Continue ASA 81mg po daily -Continue Lipitor 40mg po daily -Management of blood pressure and diabetes F/E/N - NSS at 100mL/hr x 2 liters, CC/AHA diet as tolerated Ppx - SCDs Code - Full Dispo - Home. Patient needs transportation home. Case management aware. Patient verbalizes this morning that he is willing to take his medications upon discharge. He understands he will be discharged home with a anderson catheter, and will need f/u with urology in 7-10 days for a trial of void. He will also need established with a PCP. Patient verbalizes he is willing to see primary care. C ase management has been consulted to aid in establishing the patient outpatient follow-up. Total Time Total Time Spent Total Time Spent (In Minutes): >30 minutes Total Time Includes: Examination of the Patient, Discharge Planning, Medication Reconciliation and Communication With Other Providers Discharge Plan Discharge Items Patient Disposition: Home - Self-Care Reason For Visit: URINARY RETENTION, CONSTIPATION Discharge Diagnosis: urinary retention Activity: Resume your previous activity Non-emergency contact: Primary Care Provider Call non-emergency contact if: you have any medication questions Follow-up/Referrals: PCP,NO [Primary Care Provider] - Diet: Carb Consistent or DM2 and Heart Healthy Addtl Attending Provider Instructions: You have been hospitalized for an acute medical problem. During your stay at [facility], we have made an effort to correct the problem that brought you to the hospital while keeping you as comfortable as possible. Medications were used to bring your condition under control and your discharge instructions will include directions for any medications you should take after leaving the hospital. Please make sure you see your Primary Care Provider as part of your follow up plan. -Discharge home with anderson catheter. Follow up with urology in 7-10 days for trail of void. -Continue Flomax 0.4mg qhs on discharge. Continue miralax for constipation Need PCP followup in 1-2 weeks. Pending Studies at Discharge: No Stand-Alone Forms: My [facility], Smoking Cessation Medications and DC Order Prescriptions: New atorvastatin 40 mg Tablet 40 mg PO HS 30 Days Qty: 30 RF: 0 polyethylene glycol 3350 [Miralax] 17 gram Powder In Packet 17 g PO DAILY PRN (Reason: constipation ) 30 Days Qty: 30 RF: 0 lisinopril 20 mg Tablet 20 mg PO QAM 30 Days Qty: 30 RF: 0 aspirin 81 mg Tablet,Delayed Release (Dr/Ec) 81 mg PO DAILY 30 Days Qty: 30 RF: 0 tamsulosin 0.4 mg Capsule 0.4 mg PO HS 30 Days Qty: 30 RF: 0 docusate sodium 100 mg Capsule 100 mg PO BID PRN (Reason: constipation ) 30 Days Qty: 60 RF: 0 metformin 850 mg tablet 850 mg PO DAILY Qty: 30 RF: 0 Discharge Orders: Discharge Order (Routine); Ordered 07/23/20 Ordered By: Aga Posada/Other Patient Handouts: Emptying and Cleaning Your ..., Discharge Instructions Caring for ... Admission Data Admit Date/Time: 07/22/20 18:37 Attending Provider: Declan Bassett Admit Provider: Mariaelena Perea Primary Care Provider: PCP,NO Other Providers: Mariaelena Perea Other Interventions: Discharge Summary Assessment (RN) Last Done: 07/23/20 13:53 Supervising Physician Co-Signing Physician Notes Patient seen and examined at bedside. Obtained brief history and physical examination. I agree with RAMY Hanson. Patient will be discharged. Family is agreeable for discharge. D/W case management Will need followup with urology for possible urinary retention. Coding Level of Care Code D/C Day Management >30 mins Diagnoses Constipation K59.00 Constipation type: unspecified constipation type Acute urinary retention R33.8 Hypertension I10 Hypertension type: essential hypertension Diabetes type 2, uncontrolled E11.65 Glycemic state: with hyperglycemia CVA (cerebral vascular accident) I63.9 CVA mechanism: unspecified
[2020-07-24 06:22] LABS: Estimated Average Glucose 186 mg/dl; Hemoglobin A1C 8.1 % (4.5-5.6)
== END 2020-07-23 16:42 | disposition home or self-care (01) ==
LOC: 3W 09:52 → ED 09:52 → SUATTDRO 18:37 → 3W 20:47